=== PATIENT | female | born 1985 | race Two or more races ===

== ENCOUNTER 2019-09-23 09:18 | Inpatient (IN) | payer OTHER ==
[~2019-09-23] VITALS: Ht 170.2 cm; Wt 110.2 kg
[2019-09-23] MEDS ORDERED: ADULT ASPIRIN81 MG PO (11:17)
[2019-09-23] MEDS ORDERED: PRENATAL CAPLE1 EAC1 PO (11:17)
== END 2019-09-26 14:20 | disposition home or self-care (01) | DRG 833 ==
LOC: LDR 09:18 → OB/GYN 09-24 13:05
PROVIDERS: ADMIT Obstetrics & Gynecology
PROC: 4A1HXCZ Monitoring of Products of Conception, Cardiac Rate, External Approach (ICD-10-PCS; principal; 2019-09-23)
DX: O14.13 Severe pre-eclampsia, third trimester (principal)

== ENCOUNTER 2019-10-07 14:07 | Outpatient (CLI) | payer OTHER ==
[~2019-10-07 14:07] MED LIST: ADULT ASPIRIN81 MG PO; PRENATAL CAPLE1 EAC1 PO
== END 2019-10-08 11:24 | disposition home or self-care (01) ==
LOC: OBS/DEL 14:07
DX: O13.3 Gestational [pregnancy-induced] hypertension without significant proteinuria, third trimester (principal)

== ENCOUNTER 2019-10-25 05:27 | Inpatient (IN) | payer OTHER ==
[~2019-10-25] VITALS: Ht 170.2 cm; Wt 111.1 kg
== END 2019-10-27 10:48 | disposition home or self-care (01) | DRG 788 ==
LOC: OB/GYN 05:27 → LDR 05:27 → O/R 17:20 → OB/GYN 19:55
PROVIDERS: ADMIT Obstetrics & Gynecology
PROC: 4A1HXFZ Monitoring of Products of Conception, Cardiac Rhythm, External Approach (ICD-10-PCS; principal; 2019-10-25 17:00)
PROC: 10D00Z1 Extraction of Products of Conception, Low, Open Approach (ICD-10-PCS; principal; 2019-10-25 17:00)
PROC: 3E033VJ Introduction of Other Hormone into Peripheral Vein, Percutaneous Approach (ICD-10-PCS; principal; 2019-10-25 17:00)
DX: O61.0 Failed medical induction of labor (principal); O36.8330 Maternal care for abnormalities of the fetal heart rate or rhythm, third trimester, not applicable or unspecified; Z3A.39 39 weeks gestation of pregnancy; Z37.0 Single live birth

== ENCOUNTER 2023-03-02 08:34 | Emergency (ER) | payer OTHER ==
[~2023-03-02] VITALS: Ht 170.2 cm; Wt 99.8 kg
== END 2023-03-02 11:58 | disposition home or self-care (01) ==
LOC: ER 08:34
DX: S80.812A Abrasion, left lower leg, initial encounter (principal); V49.9XXA Car occupant (driver) (passenger) injured in unspecified traffic accident, initial encounter; Y93.89 Activity, other specified; Y92.413 State road as the place of occurrence of the external cause; Y99.9 Unspecified external cause status